=== PATIENT | male | born 1945 | race Caucasian/White ===

== ENCOUNTER 2017-01-12 05:25 | Inpatient (IN) | payer OTHER, MEDICARE ==
--- NOTE | 2017-01-11 22:30 | MH ---
cc: MAXIMINO ALMAGUER DATE OF ADMISSION 01/12/2017 ADMISSION DIAGNOSIS Osteoarthritis of the right hip. HISTORY OF THE PRESENT ILLNESS This is a 70-year-old male with significant right hip pain. Investigative studies show evidence of extensive arthritis of the right hip. Despite conservative care he is painful and symptomatic. He presents for surgical treatment. PAST MEDICAL HISTORY, SOCIAL HISTORY AND FAMILY HISTORY See attached notes. REVIEW OF SYSTEMS See attached notes. PHYSICAL EXAMINATION GENERAL: A 70-year-old male in moderate stress with his right hip. HEENT: Normocephalic, atraumatic. Pupils equal, round, reactive to light and accommodation. Extraocular motions intact. NECK: Supple. CHEST: Clear. HEART: Regular rate and rhythm. ABDOMEN: Soft, nontender, normoactive bowel sounds. MUSCULOSKELETAL: Thoracolumbar spine with restricted motion, right hip pain especially with internal and external rotation. Pain with range of motion. NEUROLOGIC: Examination within normal limits. VASCULAR: Examination within normal limits. IMPRESSION Osteoarthritis of the right hip. PLAN Right total hip replacement arthroplasty. CONSENT The risks of surgery including infection, bleeding, loss of motion, continued pain, need for further surgery, neurologic and vascular injury. The patient understands these issues and wishes to press on with surgery as outlined above. Maximino Almaguer MD MCG/KK /10:03 PM /10:17 PM
[~2017-01-12] VITALS: Ht 175.3 cm; Wt 77.8 kg
[~2017-01-12 05:25] MED LIST: ATOR1TAB18 PO; BETA0.056 TOPICAL; GABA100C4 PO; METO50TA PO; OMEP20TA PO
[2017-01-12] MEDS ORDERED: SODIUM CHLORID 0.9% 500 ML IV PRN (06:00)
[2017-01-12] MEDS ORDERED: CHLORHEXIDINE GLUCONATE 2 % 1 PACK (2 CLOTHS) TOPICAL PRN (06:00)
[2017-01-12] MEDS ORDERED: VANCOMYCIN 1000 MG/NS 250 ML (for <70 kg) IV SCH ×2 (06:00)
[2017-01-12] MEDS ORDERED: LACTATED RINGER'S 1000 ML IV PRN (06:00)
[2017-01-12] MEDS ORDERED: POVIDONE IODINE 7.5% SCRUB 118 ML BOTTLE TOPICAL SCH (06:00)
[2017-01-12] MEDS ORDERED: INSULIN HUMAN REGULAR 1,000 UNITS/10 ML VIAL SQ PRN (06:00)
[2017-01-12] MEDS ORDERED: METOPROLOL TARTRATE 25 MG TAB PO PRN (06:00)
[2017-01-12] MEDS ORDERED: ceFAZolin 2 GM PREMIX 50 ML IV SCH (06:00)
[2017-01-12] MEDS ORDERED: POVIDONE IODINE 5% (ANTISEPSIS KIT) 4 APPLICATIONS EACH NARE PRN (06:00)
[2017-01-12] MEDS ORDERED: METO100T PO (06:13)
[2017-01-12] MEDS ORDERED: TERA1CAP3 PO (06:13)
[2017-01-12] MEDS ORDERED: DICL1GEL7 TOPICAL (06:16)
[2017-01-12] MEDS ORDERED: BETA0.1L TOPICAL (06:16)
[2017-01-12] MEDS ORDERED: GENTAMICIN SULFATE 80 MG/2 ML VIAL ONE (06:23)
[2017-01-12 06:50] LABS: AUTOMATED NEUTROPHIL # 4.3 TH/MM3 (1.8-7.7); BASOPHIL % 0.3 % (0.0-2.0); EOSINOPHIL # 0.2 TH/MM3 (0-0.4); EOSINOPHIL % 3.6 % (0.0-4.0); HEMATOCRIT 39.9 % (39.0-51.0); HEMO FLAGS DIFF FINAL; LYMPH % 14.4 % (9.0-44.0); LYMPHOCYTE # 0.9 TH/MM3 (1.0-4.8); MEAN CELL VOLUME 90.8 FL (80.0-100.0); MEAN CORPUSCULAR HEMOGLOBIN 31.3 PG (27.0-34.0); MEAN CORPUSCULAR HGB CONC 34.4 % (32.0-36.0); MONO % 10.4 % (0.0-8.0); NEUT % 71.3 % (16.0-70.0); PLATELET COUNT 195 TH/MM3 (150-450); RED CELL DISTRIBUTION WIDTH 13.4 % (11.6-17.2); WHITE BLOOD COUNT 6.1 TH/MM3 (4.0-11.0)
[2017-01-12] MEDS ORDERED: FAMOTIDINE 20 MG/2 ML VIAL ONE (07:07)
[2017-01-12] MEDS ORDERED: TRANEXAMIC ACID IV SCH (07:30)
[2017-01-12] MEDS ORDERED: SODIUM CHLORIDE 0.9% IV SCH (07:30)
[2017-01-12] MEDS ORDERED: EXPAREL PERI-ARTICULAR INJECTION (TOTAL VOL. 60 ML) P-ARTICULR SCH ×2 (07:30)
[2017-01-12] MEDS ORDERED: PROPOFOL 200 MG/20 ML AMP ONE (08:59)
--- NOTE | 2017-01-12 09:33 | RADRPT ---
EXAM DATE/TIME: 01/12/2017 08:16 [place] COMPARISON: No previous studies available for comparison. INDICATIONS : Right total hip arthroplasty. MEDICAL HISTORY : None. SURGICAL HISTORY : None. ENCOUNTER: Initial ACUITY: 1 day PAIN SCORE: Non-responsive. LOCATION: Right hip FINDINGS: 2 spot intraoperative fluoroscopic views of the right hip demonstrate a total hip arthroplasty in sat isfactory alignment. CONCLUSION: Postoperative changes right total hip arthroplasty. Getachew Ordoñez MD on January 12, 2017 at 9:31 Board Certified Radiologist. This report was verified electronically.
--- NOTE | 2017-01-12 09:35 | PD.OP ---
cc: Neville Sun MD Operative Report Date of Surgery: Jan 12, 2017 Preoperative Diagnosis: Osteoarthritis right hip Postoperative Diagnosis: Procedure: Right total hip replacement arthroplasty, direct anterior exposure Anesthesia: Spinal with IV sedation Surgeon: Neville Sun Diagnostic Radiologic Technologist(s): KARTHIKEYAN Rodgers M.D. Operation and Findings: EBL: 250 cc INDICATION: This patient presents with significant hip pain related to severe osteoarthritis of the right hip. Despite extensive conservative care this patient continues to be painful and now presents for surgical treatment. NOTE: Sarah Rodgers PA-C was present for the entire surgical procedure as my engineering inspection assistant. In my medical opinion her skill and care was necessary for the proper management of this patient. COMPONENTS: COMPANY: [employer] CUP: [place], 52 mm, 100 series, gription surface LINER: Altrx 32 mm, neutral STEM: [place], size 11, high offset, hydroxyapatite-coated HEAD: Metal, 32, +9, 12/14 taper PROCEDURE: This patient was brought to the operating room and anesthetized in the supine position and positioned on the fracture table with both legs held extended. The right hip and leg was scrubbed with alcohol followed by Hibiclens followed by ChloraPrep and draped sterilely. Antibiotics were given within routine time window and a timeout was done. A 4 inch incision was made starting 2 cm distal and 2 cm lateral to the anterior superior iliac spine. The fascia genoveva was opened longitudinally. The interval between the fascia genoveva and the rectus was opened down to the capsule of the hip joint. Retractors were positioned allowing good visualization of the capsule. This was opened longitudinally and flaps were created. Stay sutures were utilized. Exposure was excellent. The neck was cut at the proper location using fluoroscopy as a guide. The head was removed. Deep retractors were positioned allowing good visualization of the acetabulum. Acetabulum was deepened down to the floor starting with a proper size reamer and reaming up to 51 mm. A trial was utilized. Fluoroscopy was used to check position and confirmed satisfactory alignment. The rim was reamed with a 52 mm reamer and the final cup was positioned in approximately 20 of anteversion and 40-45 of abduction. Position was satisfactory. A single hole eliminator was positioned followed by the final liner. The lifting hook was utilized. The leg was dropped to the floor, maximally externally rotated and brought across the midline. Retractors were positioned. A box osteotome was utilized followed by progressive broaching to the proper stem size. Trial reduction showed excellent alignment and fit. With 60 of external rotation the leg was dropped to the floor without evidence of anterior subluxation. The wound was irrigated. The final stem was inserted and was found to be very stable. The final reduction using the final head. Stability was as previously noted. Intraoperative x-rays were taken. The wound was irrigated copiously. Hemostasis was controlled. Local anesthesia was utilized. The capsule was repaired with #2 Tycron sutures. The fascia genoveva was repaired with running 0 PDS on a loop. Subcutaneous tissue was approximated with 2-0 Vicryl and skin with running intradermal 3-0 Vicryl followed by Steri-Strips. A sterile dressing was applied. The patient was awakened and taken to the recovery room in satisfactory condition. FINDINGS: There was severe osteoarthritis of the right hip. The final solution was excellent. During the surgical procedure, a radiologic navigation system was utilized, joint point. This confirmed that we lengthened the leg approximately 2-3 mm and change offset by approximate a -2-3 mm. Neville Sun MD Jan 12, 2017 09:35
[2017-01-12] MEDS ORDERED: XARE10TA PO (09:39)
[2017-01-12] MEDS ORDERED: HYDR-3580 PO (09:39)
[2017-01-12] MEDS ORDERED: ACETAMINOPHEN/HYDROcodone 325 MG/7.5 MG TAB PO PRN (09:45)
[2017-01-12] MEDS ORDERED: MISCELLANEOUS NURSING INFORMATION XX PRN (09:45)
[2017-01-12] MEDS ORDERED: MISCELLANEOUS PHARMACY INFORMATION XX ONE (09:45)
[2017-01-12] MEDS ORDERED: Post-op Orders (for Pharmacy) MISC XX ONE (09:45)
[2017-01-12] MEDS ORDERED: MORPHINE SULFATE 30 MG/30 ML PCA IV SCH (09:45)
[2017-01-12] MEDS ORDERED: SODIUM CHLORIDE 0.9% FLUSH 5 ML FLUSH IVF PRN (09:45)
[2017-01-12] MEDS ORDERED: NALOXONE HCL 0.4 MG/ML AMP IV PRN (09:45)
[2017-01-12] MEDS ORDERED: DO NOT ADM ANY ANTICOAGULANT DRUGS PRN (10:00)
[2017-01-12] MEDS: LACTATED RINGER'S 1000 ML INJ 1,000 ML IV SCH ×2 (10:37→21:32)
[2017-01-12 11:40] VITALS: BP 124/61; PULSE 62; RESP 18; TEMP 96.9; O2SAT 96
[2017-01-12] MEDS ORDERED: PHENYLEPH/NS 1000 MCG/10 ML SYR IV ONE (12:00)
[2017-01-12] MEDS ORDERED: DEXAMETHASONE SOD PHOS 4 MG/ML VIAL IV ONE (12:00)
[2017-01-12] MEDS ORDERED: LACTATED RINGER'S 1000 ML INJ 2,000 ML IV ONE (12:00)
[2017-01-12] MEDS ORDERED: PROPOFOL 200 MG/20 ML AMP IV ONE (12:00)
[2017-01-12] MEDS ORDERED: ONDANSETRON HCL 4 MG/2 ML VIAL IV PUSH ONE (12:00)
[2017-01-12] MEDS ORDERED: ePHEDrine/NS 25 MG/5 ML SYR IV ONE (12:00)
[2017-01-12] MEDS ORDERED: MIDAZOLAM HCL 2 MG/2 ML VIAL IV ONE (12:00)
[2017-01-12] MEDS ORDERED: MORPHINE SULFATE 4 MG/ML INJ IV PUSH PRN (12:15)
[2017-01-12] MEDS: ACETAMINOPHEN/HYDROcodone 325 MG/7.5 MG TAB PO PRN ×4 (14:30→22:14)
[2017-01-12 16:00] VITALS: BP 113/62; PULSE 65; RESP 18; TEMP 96.5; O2SAT 95
[2017-01-12] MEDS ORDERED: ONDANSETRON HCL 4 MG/2 ML VIAL IV PUSH PRN (20:15)
[2017-01-12] MEDS ORDERED: ALUMINUM/MAGNESIUM/SIMETH 30 ML CUP PO PRN (20:15)
[2017-01-12 20:35] VITALS: BP 140/78; PULSE 65; RESP 17; TEMP 96.8; O2SAT 94
[2017-01-12] MEDS ORDERED: ATORVASTATIN 80 MG TAB PO SCH (21:00)
[2017-01-12] MEDS: MAGNESIUM HYDROXIDE SUSP 30 ML CUP PO SCH (21:00)
[2017-01-12] MEDS ORDERED: SODIUM CHLORIDE 0.9% FLUSH 5 ML FLUSH IVF SCH (21:00)
[2017-01-12] MEDS ORDERED: GABAPENTIN 100 MG CAP PO SCH (21:00)
[2017-01-12] MEDS ORDERED: SENNOSIDES 8.6 MG TAB PO SCH (21:00)
[2017-01-12] MEDS ORDERED: TERAZOSIN HCL 1 MG CAP PO SCH (21:00)
[2017-01-12] MEDS: PANTOPRAZOLE SOD 20 MG DELAYED RELEASE TAB PO SCH (21:29)
[2017-01-12] MEDS: METOPROLOL TARTRATE 50 MG TAB PO SCH (21:31)
[2017-01-12] MEDS: PCA - TOTAL MG MORPHINE DELIVERED PER SHIFT SCH (21:33)
[2017-01-12 22:05] VITALS: O2SAT 98
[2017-01-13] MEDS ORDERED: PROMETHAZINE INJ 25 MG/ML VIAL IM PRN (00:30)
[2017-01-13 00:40] VITALS: BP 118/62; PULSE 66; RESP 17; TEMP 96.2; O2SAT 95
[2017-01-13 04:35] VITALS: BP 135/79; PULSE 61; RESP 17; TEMP 96.5; O2SAT 96
[2017-01-13] MEDS: PCA - TOTAL MG MORPHINE DELIVERED PER SHIFT SCH (05:36)
[2017-01-13] MEDS: ACETAMINOPHEN/HYDROcodone 325 MG/7.5 MG TAB PO PRN ×3 (05:36→13:50)
[2017-01-13 05:48] LABS: HEMATOCRIT 35.2 % (39.0-51.0); REVIEW FLAG FINAL
[2017-01-13 08:00] VITALS: BP 115/65; PULSE 69; RESP 18; TEMP 96.8; O2SAT 96
[2017-01-13] MEDS: PANTOPRAZOLE SOD 20 MG DELAYED RELEASE TAB PO SCH (08:17)
[2017-01-13] MEDS: METOPROLOL TARTRATE 50 MG TAB PO SCH (08:17)
[2017-01-13] MEDS: MAGNESIUM HYDROXIDE SUSP 30 ML CUP PO SCH (08:18)
[2017-01-13] MEDS ORDERED: RIVAROXABAN 10 MG TAB PO SCH (09:00)
[2017-01-13 10:32] VITALS: O2SAT 93
[2017-01-13 12:00] VITALS: BP 143/71; PULSE 68; RESP 18; TEMP 95.9; O2SAT 95
--- NOTE | 2017-01-13 13:08 | PD.ORT.PN ---
Subjective Post Op Day #: 1 Subjective Remarks POD #1 Right total hip replacement arthroplasty, direct anterior exposure Patient is awake alert and sitting upright in bed. He does admit to some nausea late last night and this morning. He admits that Phenergan works very well last night. He states he has walked successfully. He states he does feel ready for discharge to home today. Objective Vitals Vital Signs Date Time Temp Pulse Resp B/P (MAP) Pulse Ox O2 Delivery O2 Flow Rate FiO2 01/13/17 12:00 95.9 68 18 143/71 (95) 95 01/13/17 10:32 93 01/13/17 08:00 96.8 69 18 115/65 (82) 96 01/13/17 04:35 96.5 61 17 135/79 (97) 96 01/13/17 00:40 96.2 66 17 118/62 (80) 95 01/12/17 22:05 98 01/12/17 21:33 17 01/12/17 20:35 96.8 65 17 140/78 (98) 94 01/12/17 16:00 96.5 65 18 113/62 (79) 95 I/O 01/12/17 01/12/17 01/12/17 01/13/17 01/13/17 01/13/17 07:00 15:00 23:00 07:00 15:00 23:00 Intake Total 1776 ml 120 ml 480 ml Output Total 1050 ml 250 ml 400 ml Balance 726 ml -130 ml 80 ml Intake Oral 480 ml 120 ml 480 ml IV Total 1296 ml Output Urine Total 800 ml 250 ml 400 ml Estimated Blood Loss 250 ml # Bowel Movements 0 0 0 Result Diagram: 01/13/17 0517 Imaging Last Impressions Hip X-Ray 01/12/17 0000 Signed Impressions: Service Date/Time: Thursday, January 12, 2017 08:16 - CONCLUSION: Postoperative changes right total hip arthroplasty. Getachew Ordoñez MD Procedures 01/12/17 Right total hip replacement arthroplasty, direct anterior exposure Objective Remarks RLE: Dressings dry and intact, minimal tenderness and swelling her incision site , expected postoperative range of motion, freely able to move distal digits and ankle, negative Homans sign, no calf pain, neurovascularly intact Assessment & Plan Ortho Post Op Day #: 1 Problem List: (1) Osteoarthritis of right hip ICD Codes: M16.11 - Unilateral primary osteoarthritis, right hip Assessment and Plan POD #1 Right total hip replacement arthroplasty, direct anterior exposure Progress rehabilitation, weightbearing as tolerated No change dressing Xarelto for DVT prophylaxis Phenergan will be sent home with patient for nausea Clear for discharge from orthopedic standpoint with [facility] Keep scheduled follow-up appointment Dr. Sun or Kirsty Fischer Jan 13, 2017 1:08 pm
[2017-01-13] MEDS ORDERED: PROM25TA10 PO (13:10)
--- NOTE | 2017-01-13 13:13 | HHI.DS ---
Discharge Summary Admission Date Jan 12, 2017 at 5:25 am Discharge Date: Jan 13, 2017 Admitting Diagnosis Osteoarthritis right hip Diagnosis: (1) Osteoarthritis of right hip Diagnosis: Principal ICD Codes: M16.11 - Unilateral primary osteoarthritis, right hip Procedures 01/12/17 Right total hip replacement arthroplasty, direct anterior exposure Brief History This is a 71-year-old male with significant right hip pain. Investigative studies show evidence of extensive arthritis of the right hip. Despite conservative care he is painful and symptomatic. He presents for surgical treatment. CBC/BMP: 01/13/17 0517 Significant Findings Laboratory Tests Test 01/12/17 06:15 01/13/17 05:17 Red Blood Count 4.40 MIL/MM3 (4.50-5.90) Neutrophils (%) (Auto) 71.3 % (16.0-70.0) Monocytes (%) (Auto) 10.4 % (0.0-8.0) Lymphocytes # (Auto) 0.9 TH/MM3 (1.0-4.8) Hemoglobin 11.9 GM/DL (13.0-17.0) Hematocrit 35.2 % (39.0-51.0) Imaging Last Impressions Hip X-Ray 01/12/17 0000 Signed Impressions: Service Date/Time: Thursday, January 12, 2017 08:16 - CONCLUSION: Postoperative changes right total hip arthroplasty. Getachew Ordoñez MD PE at Discharge RLE: Dressings dry and intact, minimal tenderness and swelling her incision site , expected postoperative range of motion, freely able to move distal digits and ankle, negative Homans sign, no calf pain, neurovascularly intact Hospital Course On the day of admission the patient was taken to the operating room where the patient underwent right total hip arthroplasty, anterior approach. The patient tolerated the procedure well. For details of operative report please see dictated operative report. The patient was placed on Ancef for infection prophylaxis and Xarelto for DVT prophylaxis. Physical therapy was consulted for discharge planning. The patient will undergo home health care and it has been ordered. At the time of discharge the patient was afebrile. Incision line noted to be healing well. The patient will be discharged home with Xarelto for DVT prophylaxis and prescribed hydrocodone for pain. The patient acknowledges full understanding of plan of treatment and agrees to it. Pt Condition on Discharge: Good Discharge Disposition: Discharge Home Discharge Instructions Diet Instructions: As Tolerated, No Restrictions Activities You Can Perform: Weight Bearing as Kirsty Roy Jan 13, 2017 1:12 pm
--- NOTE | 2017-01-13 13:15 | HHI.FF ---
Face to Face Verification Diagnosis: (1) Osteoarthritis of right hip Physical Therapy Gait training, Safety evaluation Hip: Total hip Right LE Weight Bearing: WB as tolerated Right LE Range of Motion: Active ROM Nursing Dressing Changes: Do not change dressing I have seen patient Rad [place] on 01/13/17. My clinical findings support the need for the requested home health care services because: Limited ability to care for self High risk of falls I certify that my clinical findings support that this patient is homebound because: Post-op weakness Kirsty Rodgers Jan 13, 2017 1:15 pm
== END 2017-01-13 16:38 | disposition home health service (06) | DRG 470 ==
LOC: HSDI 05:25 → N06B 11:30
PROVIDERS: ADMIT Orthopaedic Surgery Orthopaedic Surgery of the Spine; ATTEND Orthopaedic Surgery Orthopaedic Surgery of the Spine
PROC: 0SR90JA Replacement of Right Hip Joint with Synthetic Substitute, Uncemented, Open Approach (ICD-10-PCS; principal; 2017-01-12 07:13)
DX: M16.11 Unilateral primary osteoarthritis, right hip (principal)
CPT/HCPCS: 73502; 76000; 85014; 85018; 85025; 86850; 86900; 86901; 86920; 94150; C1776; C9290; J0690; J1100; J1580; J2250; J2270; J2370; J2405; J2550; J3010; J3370; J7050; J7120